=== PATIENT | female | born 1960 | race Caucasian/White ===

== ENCOUNTER 2017-04-01 15:04 | Emergency (ER) | payer OTHER ==
[~2017-04-01] VITALS: Ht 170.2 cm; Wt 128.2 kg
[~2017-04-01 15:04] MED LIST: ASPIR 8181 M1 PO; GLUCOPHAGE500 MG PO; LANTUS 10100 UNITS/ SC; NOHOMEMEDS
[2017-04-01 17:26] LABS: HEMATOCRIT 41.5 % (36.0-46.0); MCH 27.1 PG (29.0-34.0); MCHC 32.3 G/DL (30.0-36.0); MEAN PLAT.VOLUME 9.5 uM^3 (9.5-12.4); PLATELET COUNT 333 K/uL (156-360); RBC DIS.WIDTH-CV 12.7 % (11.8-14.6); RBC DIS.WIDTH-SD 38.3 % (39-53); RED BLOOD COUNT 4.94 M/uL (3.80-5.20); WHITE BLOOD COUNT 11.8 K/uL (4.1-10.2)
[2017-04-01 17:38] LABS: CHLORIDE 106 mEq/L (99-109); POTASSIUM 4.3 mEq/L (3.7-5.4); SODIUM 139 mEq/L (136-147)
[2017-04-01 17:40] LABS: GLUCOSE 101 mg/dL (70-99)
[2017-04-01 17:41] LABS: ANION GAP 9 MEQ/L (2-14)
[2017-04-01 17:42] LABS: TOTAL BILIRUBIN 0.3 mg/dL (0.0-1.0)
[2017-04-01 17:43] LABS: ALKALINE PHOSPHATASE 56 IU/L (3-129)
[2017-04-01 17:44] LABS: GFR ESTIMATE (CALCULATED) > 59 mL/min/
[2017-04-01 17:45] LABS: UREA NITROGEN (BUN) 18 mg/dL (9-23)
[2017-04-01 18:18] LABS: ADD MIUA? YES; BILIRUBIN NEGATIVE; BLOOD NEGATIVE; COLOR YELLOW ((YELLOW)); GLUCOSE (STRIP) NEGATIVE; KETONES NEGATIVE; LEUKOCYTES NEGATIVE; NITRITE NEGATIVE; PROTEIN (STRIP) NEGATIVE; SPECIFIC GRAVITY 1.016 (1.000-1.030); UROBILINOGEN 0.2 MG/DL (0.2-1.0)
[2017-04-01 18:23] LABS: BACTERIA RARE /HPF; EPITHELIAL CELLS 1+ /HPF; MUCUS TRACE /LPF; RED BLOOD CELLS 0-5 /HPF (0-5); UCUL ADDED? NO; WHITE BLOOD CELLS 0-5 /HPF (0-5)
[2017-04-01 18:35] LABS: C-REACTIVE PROTEIN 5.8 MG/L (0-10); SAMPLE HEMOLYSIS CHECK 0; SAMPLE ICTERIC CHECK 0; SAMPLE LIPEMIA CHECK 0
[2017-04-01] MEDS ORDERED: PREDNISONE20 MG PO (18:43)
[2017-04-01] MEDS ORDERED: MOTRIN800 MG PO (18:43)
[2017-04-01] MEDS ORDERED: VALIUM5 MG PO ×2 (18:43→18:51)
[2017-04-01 19:07] VITALS: BP 162/60
== END 2017-04-01 19:08 | disposition home or self-care (01) ==
LOC: EME → EDBD 15:04 → EME 15:04
PROVIDERS: Nurse Practitioner Family
DX: M62.830 Muscle spasm of back (principal); Z87.891 Personal history of nicotine dependence
CPT/HCPCS: 72100; 80053; 81003; 85027; 86140; 99281; 99284; J1885; J3010; J3360; J7512